=== PATIENT | female | born 1990 | race Caucasian/White ===

== ENCOUNTER 2016-12-21 16:19 | Emergency (ER) | payer MEDICAID ==
[2016-12-21] MEDS ORDERED: predniSONE 20 MG TABLET PO ONE (17:24)
[2016-12-21] MEDS ORDERED: ACYCLOVIR 800 MG TABLET PO ONE (17:24)
[2016-12-21] MEDS ORDERED: ACYCLOVIR 800 MG TABLET ONE (17:26)
[2016-12-21] MEDS ORDERED: predniSONE 20 MG TABLET ONE (17:26)
--- NOTE | 2016-12-21 17:27 | ERNOTE ---
Medical Problem HPI - Narrative Date of Service: 12/21/16 - General Chief Complaint: General Assessment Time Seen by Provider: 12/21/16 16:47 Source: patient, RN notes reviewed Exam Limitations: no limitations - Immun/Allergies/Home Medications Immunizations: IMMUNIZATION HX Immunizations Up to Date Yes History of Influenza Vaccine No Hx Pneumococcal Vaccination No Home Medications: HOME MEDICATIONS Amoxicillin Trihydrate [Amoxil] 500 mg PO Q8H #30 capsule 06/30/14 [Last Taken Unknown] Ibuprofen [Motrin] 800 mg PO TID PRN #30 tab 06/30/14 [Last Taken Unknown] Lidocaine HCl [Lidocaine HCl Viscous 2%] 1 appl MM Q1H #120 btl 06/30/14 [Last Taken Unknown] Cyclobenzaprine HCl [Flexeril] 10 mg PO TID PRN #20 tab 12/21/16 [Last Taken Unknown] predniSONE [Prednisone] 2 tab PO DAILY #12 tab 12/21/16 [Last Taken Unknown] valACYclovir HCL [Valtrex] 1,000 mg PO TID #21 tab 12/21/16 [Last Taken Unknown] - History of Present History Narrative: Kanika is a 26 year old female who presents to the ED by private vehicle for numbness and tingling in the right side of her face that began yesterday. She has been having neck pain for approximately 2 months after having a fall in the bath tub. She initially attributed the symptoms to this. She then noticed that her tongue was numb and the right side of her mouth was not moving when she brushed her teeth last night. The symptoms have persisted since. Review of Systems - Review of Systems Constitutional: Absent: recent illness, fever, chills, fatigue, malaise EYE: Absent: eye pain, eye discharge, vision changes, tearing ENT: Absent: ear pain, nose congestion, sore throat Respiratory: Absent: shortness of breath, cough Cardiology: Absent: chest pain, palpitations Gastrointestinal/Abdominal: Absent: nausea, vomiting Genitourinary: Absent: other - possible Musculoskeletal: Absent: back pain, muscle pain, joint pain Skin: Absent: rash, lesions, lumps Neurological: Present: headache, weakness, numbness, tingling. Absent: dizziness/light-headedness, pre-existing deficit Endocrine: Present: no symptoms reported Hematologic/Lymphatic: Present: no symptoms reported Psych: Present: no symptoms reported - Patient's Past Medical History Patient History - Medical: ADHD, Anxiety Patient History - Cardiac/Respiratory: No pertinent hx Patient History - Cancer: No Hx of Cancer Patient History - Surgical Procedures: Other Patient History - Other: None LMP (Calendar): 11/22/16 - Social History Living Situations: home Abuse History: No History of abuse Psych History: Hx of Anxiety, Current tx/ever been on anti-depressants or anti- anxiety meds Smoking Status: Current some day smoker Have you smoked in the past 12 months: Yes Alcohol Use: none Drug Use: none - Immunizations Immunizations Up to Date: Yes Hx Pneumococcal Vaccination: No History of Influenza Vaccine: No Physical Exam - Physical Exam General Appearance: Present: wd/wn, alert, anxious, obese Head Exam: Present: no evidence of injury, no tenderness w palpation Eye Exam: Normal inspection: bilateral, PERRL: bilateral, EOMI: bilateral Ears, Nose, Throat: Present: normal ENT inspection Neck: Present: normal inspection, nontender, supple, full range of motion Respiratory: Present: no respiratory distress, normal breath sounds, no accessory muscle use, lungs clear Cardiovascular/Chest: Present: regular rate, rhythm, no murmur, normal peripheral pulses Extremity Exam: Present: normal inspection, normal range of motion, no edema Neurological Exam: Present: alert, oriented, normal mood/affect, facial droop - Right, motor weakness - Right side of face Skin Exam: Present: normal color, warm/dry ED Progress - Vital Signs Patient's Vital Signs:: I have reviewed the patient's vital signs. Vital Signs: Vital Signs 12/21/16 16:38 Temperature 36.8 C Pulse Rate 124 H Respiratory 16 Rate Blood Pressure 202/111 O2 Sat by Pulse 97 Oximetry - Progress/Reassessment Chief Complaint: General Assessment Progress:: Unchanged Departure - Departure Clinical Impression: Salgado's palsy Disposition: Home Follow Up Needed Condition: Stable Instructions: Salgado Palsy Referrals: Helen Rucker FNP [Primary Care Provider] - Prescriptions: Cyclobenzaprine HCl [Flexeril] 10 mg PO TID PRN #20 tab PRN Reason: MUSCLE SPASMS predniSONE [Prednisone] 2 tab PO DAILY #12 tab valACYclovir HCL [Valtrex] 1,000 mg PO TID #21 tab
[2016-12-21 20:34] VITALS: BP 160/94
== END 2016-12-21 17:35 | disposition home or self-care (01) ==
LOC: ER 16:19
DX: G51.0 Bell's palsy (principal); F17.200 Nicotine dependence, unspecified, uncomplicated